=== PATIENT | female | born 1990 | race Caucasian/White ===

== ENCOUNTER 2020-12-06 23:09 | Emergency (ER) | payer OTHER ==
[~2020-12-06] VITALS: Ht 162.6 cm; Wt 83.9 kg
[2020-12-06] MEDS ORDERED: LORAZEPAM 1 MG T1 MG PO (23:21)
[2020-12-06] MEDS ORDERED: BUSPIRONE HCL7.5 MG PO (23:21)
[2020-12-06] MEDS ORDERED: BRIMONIDINE 0.110 ML TOP (23:22)
[2020-12-06] MEDS ORDERED: ESTARYLLA1 EACH PO (23:22)
[2020-12-06] MEDS ORDERED: FLUOXETINE HCL40 MG PO (23:23)
[2020-12-06] MEDS ORDERED: LAMOTRIGINE250 MG PO (23:23)
[2020-12-06] MEDS ORDERED: SPIRONOLACTONE50 MG PO (23:24)
[2020-12-07 00:45] VITALS: BP 129/84
== END 2020-12-07 00:45 | disposition home or self-care (01) ==
LOC: M.ERS 23:09
DX: R13.10 Dysphagia, unspecified (principal); Z79.899 Other long term (current) drug therapy; Z79.2 Long term (current) use of antibiotics